=== PATIENT | female | born 1960 | race Asian ===

== ENCOUNTER 2021-01-17 08:58 | Day surgery (SDC) | payer BC ==
[2021-01-15 08:35] LABS: ALANINE AMINOTRANSFERASE 29 U/L (12-78); ALBUMIN 3.7 g/dL (3.4-5.0); ANION GAP 6 mmol/L (5-15); CALCIUM 9.6 mg/dL (8.5-10.1); CHLORIDE 108 mmol/L (98-107)
[2021-01-15 08:38] LABS: ALKALINE PHOSPHATASE 103 U/L (45-117); BILIRUBIN,TOTAL 0.6 mg/dL (0.2-1.0); CREATININE 0.81 mg/dL (0.55-1.02)
[~2021-01-17] VITALS: Ht 157.5 cm; Wt 57.2 kg
[~2021-01-17 08:58] MED LIST: ANAS1TAB49 PO; CHOL10003 PO; CO Q10 PO; KRILL OIL PO; LOSA25TA25 PO; MULT-672 PO
[2021-01-17] MEDS ORDERED: CHLORHEXIDINE 15 ML UDC PO ONE (09:30)
[2021-01-17] MEDS ORDERED: LACTATED RINGERS 1,000 ML IV SCH (09:30)
[2021-01-17 09:34] VITALS: BP 159/97
[2021-01-17] MEDS ORDERED: MIDAZOLAM 1 MG/ML, 2ML ONE (09:52)
[2021-01-17] MEDS ORDERED: FENTANYL PF 100 MCG/2ML ONE (09:52)
[2021-01-17] MEDS ORDERED: SCOPOLAMINE 1MG PATCH TD ONE (10:46)
[2021-01-17] MEDS ORDERED: OMNIPAQUE 350 MG/ML, 50 ML BOTTLE ONE (10:52)
[2021-01-17] MEDS ORDERED: PHENYLEPHRINE 10 MG/ML ONE (10:59)
[2021-01-17] MEDS ORDERED: CEFAZOLIN 1,000 MG ONE (10:59)
[2021-01-17] MEDS ORDERED: ONDANSETRON 2MG/ML, 2ML ONE (10:59)
[2021-01-17] MEDS ORDERED: PROPOFOL 10 MG/ML, 20ML ONE (10:59)
[2021-01-17] MEDS ORDERED: OXYcodone 5 MG/5 ML ORAL.SOL UDC PO PRN (11:30)
[2021-01-17] MEDS ORDERED: DIAZEPAM 5 MG/ML, 2ML IVPush PRN (11:30)
[2021-01-17] MEDS ORDERED: MEPERIDINE/PF 25MG/0.5ML IVPush PRN (11:30)
[2021-01-17] MEDS ORDERED: PROMETHAZINE 25 MG/ML, 1ML IVPush PRN (11:30)
[2021-01-17] MEDS ORDERED: FENTANYL PF 100 MCG/2ML IV PRN (11:30)
[2021-01-17] MEDS ORDERED: ONDANSETRON 2MG/ML, 2ML IVPush PRN (11:30)
[2021-01-17] MEDS ORDERED: KETOROLAC 30 MG/1 ML IV PRN ×2 (11:30→12:00)
[2021-01-17] MEDS ORDERED: LABETALOL 5MG/ML, 20ML IV PRN (11:30)
[2021-01-17] MEDS ORDERED: ALBUTEROL/IPRATROPIUM 2.5MG/0.5MG, 3 ML NPPB PRN (11:30)
[2021-01-17] MEDS ORDERED: DIPHENHYDRAMINE 50 MG/ML, 1ML IVPush PRN (11:30)
[2021-01-17] MEDS ORDERED: HALOPERIDOL 5 MG/ML IV PRN (11:30)
[2021-01-17] MEDS ORDERED: METOPROLOL 1 MG/ML, 5ML IV PRN (11:30)
[2021-01-17] MEDS ORDERED: METOCLOPRAMIDE 5 MG/ML, 2ML IVPush PRN (11:30)
[2021-01-17] MEDS ORDERED: EPHEDRINE 50 MG/ML, 1ML IVPush PRN (11:30)
[2021-01-17] MEDS ORDERED: ACETAMINOPHEN 325 MG TABLET PO PRN (11:30)
[2021-01-17] MEDS ORDERED: HYDROmorphone 1 MG/ML, 1ML INJ IVPush PRN (11:30)
[2021-01-17] MEDS ORDERED: hydrALAzine 20 MG/ML, 1ML IV PRN (11:30)
[2021-01-17] MEDS ORDERED: HYDROcodone/APAP 5/325 TABLET PO PRN (12:00)
[2021-01-17] MEDS ORDERED: ONDANSETRON 2MG/ML, 2ML IV PRN (12:00)
[2021-01-17] MEDS ORDERED: OMNIPAQUE 350 MG/ML, 50 ML BOTTLE INJ ONE (12:23)
[2021-01-17] MEDS ORDERED: ACETAMINOPHEN 325 MG TABLET ONE (12:36)
== END 2021-01-17 13:30 | disposition home or self-care (01) ==
LOC: OUT 08:58
PROVIDERS: ATTEND Urology
DX: Z46.6 Encounter for fitting and adjustment of urinary device (principal); N13.2 Hydronephrosis with renal and ureteral calculous obstruction; I10 Essential (primary) hypertension; Z20.822 Contact with and (suspected) exposure to COVID-19; Z79.899 Other long term (current) drug therapy; Z85.3 Personal history of malignant neoplasm of breast; Z88.8 Allergy status to other drugs, medicaments and biological substances
CPT/HCPCS: 36415; 52356; 74420; 80053; 82360; 88300; C1769; C2617; J0690; J2250; J2370; J2405; J2704; J3010; J7120; Q9967; U0003; 76000